=== PATIENT | male | born 1945 | race Caucasian/White ===

== ENCOUNTER → 2019-08-07 | Outpatient (CLI) | payer MEDICARE ==
[~2019-08-07] MED LIST: AMLO10TA4 PO; APIX2.5T PO; HYDR25TA4 PO; MTP25TSR PO; PANT20TA2 PO; SUCR1TAB23 PO
[2019-08-07 09:44] LABS: BASOPHILS % (AUTO) 0 % (0-10); EOSINOPHILS # (AUTO) 0.2 10^3/uL (0.0-0.3); EOSINOPHILS % (AUTO) 3 % (0-10); HEMATOCRIT 48 % (40-54); HEMOGLOBIN 16.5 G/DL (13.3-17.7); LYMPHOCYTES # (AUTO) 2.2 X 10^3 (1.0-4.0); LYMPHOCYTES % (AUTO) 30 % (12-44); MEAN CORPUSCULAR HEMOGLOBIN 29 PG (25-34); MEAN CORPUSCULAR HGB CONC 34 G/DL (32-36); MEAN CORPUSCULAR VOLUME 85 FL (80-99); MEAN PLATELET VOLUME 9.1 FL (7.4-10.4); MONOCYTES # (AUTO) 0.7 X 10^3 (0.0-1.0); MONOCYTES % (AUTO) 9 % (0-12); NEUTROPHILS # (AUTO) 4.3 X 10^3 (1.8-7.8); NEUTROPHILS % (AUTO) 58 % (42-75); PLATELET COUNT 275 10^3/uL (130-400); RED CELL DISTRIBUTION WIDTH 14.3 % (10.0-14.5); WHITE BLOOD COUNT 7.3 10^3/uL (4.3-11.0)
[2019-08-07 10:06] LABS: ALANINE AMINOTRANSFERASE 30 U/L (0-55); ALBUMIN 4.8 GM/DL (3.2-4.5); ALKALINE PHOSPHATASE 58 U/L (40-136); BILIRUBIN,TOTAL 0.7 MG/DL (0.1-1.0); BUN/CREATININE RATIO 15; CALCIUM 10.2 MG/DL (8.5-10.1); CARBON DIOXIDE 26 MMOL/L (21-32); CHLORIDE 104 MMOL/L (98-107); CHOLESTEROL 171 MG/DL (< 200); CREATININE SERUM 1.18 MG/DL (0.60-1.30); GFR ESTIMATED > 60; GLUCOSE 103 MG/DL (70-105); HDL CHOLESTEROL 67 MG/DL (40-60); POTASSIUM 4.1 MMOL/L (3.6-5.0); SODIUM 139 MMOL/L (135-145); TOTAL PROTEIN 8.1 GM/DL (6.4-8.2); TRIGLYCERIDES 128 MG/DL (<150); VLDL CHOLESTEROL 26 MG/DL (5-40)
== END ==
LOC: LAB 09:27
PROVIDERS: ATTEND Internal Medicine Cardiovascular Disease
DX: I34.0 Nonrheumatic mitral (valve) insufficiency (principal); I10 Essential (primary) hypertension; I48.91 Unspecified atrial fibrillation; I65.29 Occlusion and stenosis of unspecified carotid artery; E78.2 Mixed hyperlipidemia
CPT/HCPCS: 36415; 80053; 80061; 85025

== ENCOUNTER → 2021-07-02 | Outpatient (CLI) | payer MEDICARE ==
[2021-07-02 08:36] LABS: ABSOLUTE RETIC # 36 10e9/uL (24-90); BASOPHILS % (AUTO) 1 % (0-10); EOSINOPHILS # (AUTO) 0.2 10^3/uL (0.0-0.3); EOSINOPHILS % (AUTO) 3 % (0-10); HEMATOCRIT 48 % (40-54); HEMOGLOBIN 14.6 g/dL (13.3-17.7); LYMPHOCYTES # (AUTO) 1.4 10^3/uL (1.0-4.0); LYMPHOCYTES % (AUTO) 26 % (12-44); MEAN CORPUSCULAR HEMOGLOBIN 24 pg (25-34); MEAN CORPUSCULAR HGB CONC 31 g/dL (32-36); MEAN CORPUSCULAR VOLUME 77 fL (80-99); MEAN PLATELET VOLUME 9.1 fL (9.0-12.2); MONOCYTES # (AUTO) 0.5 10^3/uL (0.0-1.0); MONOCYTES % (AUTO) 9 % (0-12); NEUTROPHILS # (AUTO) 3.2 10^3/uL (1.8-7.8); NEUTROPHILS % (AUTO) 61 % (42-75); PLATELET COUNT 255 10^3/uL (130-400); RETICULOCYTE % 0.58 % (0.50-2.40); WHITE BLOOD COUNT 5.3 10^3/uL (4.3-11.0)
[2021-07-02 09:29] LABS: LYMPHOCYTES % (MANUAL) 35 %; NEUTROPHILS % (MANUAL) 53 %
[2021-07-02 09:30] LABS: ANISOCYTOSIS SLIGHT; ELLIPT/OVALOCYTES SLIGHT; EOSINOPHILS % (MANUAL) 5 %; HYPOCHROMASIA SLIGHT; MICROCYTOSIS SLIGHT; MONOCYTES % (MANUAL) 7 %; POIKILOCYTOSIS SLIGHT
== END ==
LOC: LAB
PROVIDERS: ATTEND Internal Medicine
DX: D50.9 Iron deficiency anemia, unspecified (principal)
CPT/HCPCS: 36415; 85007; 85027; 85045; 85055

== ENCOUNTER → 2021-07-21 | Outpatient (CLI) | payer MEDICARE ==
[~2021-07-21] VITALS: Ht 182 cm; Wt 82.0 kg
[~2021-07-21] MED LIST changes: +CATHETER FLUSH 10 ML SYR IV PRN
[2021-07-21 12:04] VITALS: BP 158/94
--- NOTE | 2021-07-22 07:54 | Cardiology Stress Test Report ---
Stress Test Report Date of Procedure/Referring: Date of Procedure: Jul 21, 2021 Kya Huang Admitting Physician Marky Tejeda MD Indications: A Fib Baseline Heart Rate: 61 Baseline Blood Pressure: Blood Pressure Systolic: 158 Blood Pressure Diastolic: 94 Vital Signs Date Time Temp Pulse Resp B/P (MAP) Pulse Ox O2 Delivery O2 Flow Rate FiO2 07/21/21 12:04 61 158/94 (115) 98 Baseline Vital Signs Vital Signs Date Time Temp Pulse Resp B/P (MAP) Pulse Ox O2 Delivery O2 Flow Rate FiO2 07/21/21 12:04 61 158/94 (115) 98 Baseline EKG: Baseline EKG: atrial fribrillation Summary: After explaining the procedure and details to the patient, he signed the consent and was brought to the stress nuclear laboratory. Patient exercised on standard Ehsan protocol, EKG, heart rate and blood pressure were monitored continuously, resting and stress doses of radio tracer were injected, imaging was acquired and reviewed in the short axis, horizontal long axis and vertical long axis views Patient was able to exercise for a total of 7 minutes on Ehsan protocol, METs 8.5 Maximum heart rate 138 Maximum blood pressure 170/115 Stress EKG, Minimal nondiagnostic changes Recovery EKG, Return to baseline TID: 1.03 SSS: 7 SDS: 2 EF: 69 Conclusion: 1. Fair exercise tolerance for a total of 7 minutes on standard Ehsan protocol, 8.5 METS achieving 94% of maximal expected heart rate 2. Baseline atrial fibrillation persisted during test 3. Hypertensive response to exercise with peak blood pressure 170/115 return to baseline during recovery 4. Nondiagnostic EKG changes with exercise return to baseline during recovery 5. Mild decrease uptake in the apex and anteroapical segment which is fixed no significant reversibility was noted, probably extracardiac attenuation 6. Normal left ventricular size and contractility, ejection fraction 69%, gated images are unreliable due to underlying atrial fibrillation JANET HUSTON MD Jul 22, 2021 07:54
== END ==
LOC: CARD 11:00
PROVIDERS: ATTEND Physician Assistant
DX: I08.3 Combined rheumatic disorders of mitral, aortic and tricuspid valves (principal); I11.9 Hypertensive heart disease without heart failure; I48.0 Paroxysmal atrial fibrillation; I25.10 Atherosclerotic heart disease of native coronary artery without angina pectoris
CPT/HCPCS: 78452; 93017; 93306; A9502

== ENCOUNTER → 2021-07-25 | Outpatient (CLI) | payer MEDICARE ==
[~2021-07-25] MED LIST changes: -CATHETER FLUSH 10 ML SYR IV PRN
[2021-07-25 15:59] LABS: BASOPHILS % (AUTO) 0 % (0-10); EOSINOPHILS # (AUTO) 0.1 10^3/uL (0.0-0.3); EOSINOPHILS % (AUTO) 2 % (0-10); HEMATOCRIT 45 % (40-54); HEMOGLOBIN 14.8 g/dL (13.3-17.7); LYMPHOCYTES # (AUTO) 1.9 X 10^3 (1.0-4.0); LYMPHOCYTES % (AUTO) 28 % (12-44); MEAN CORPUSCULAR HEMOGLOBIN 25 pg (25-34); MEAN CORPUSCULAR HGB CONC 33 g/dL (32-36); MEAN CORPUSCULAR VOLUME 77 fL (80-99); MEAN PLATELET VOLUME 8.9 fL (9.0-12.2); MONOCYTES # (AUTO) 0.9 X 10^3 (0.0-1.0); MONOCYTES % (AUTO) 14 % (0-12); NEUTROPHILS # (AUTO) 3.6 X 10^3 (1.8-7.8); NEUTROPHILS % (AUTO) 55 % (42-75); PLATELET COUNT 248 10^3/uL (130-400); WHITE BLOOD COUNT 6.6 10^3/uL (4.3-11.0)
--- NOTE | 2021-07-25 16:12 | Diagnostic Imaging Report ---
PROCEDURE: CT head and CT cervical spine without contrast. TECHNIQUE: Multiple contiguous axial images were obtained through the brain and cervical spine without the use of intravenous contrast. Sagittal and coronal reformations through the cervical spine were then performed. Auto Exposure Controls were utilized during the CT exam to meet ALARA standards for radiation dose reduction. INDICATION: Head injury, pain, fall. COMPARISON: None available. FINDINGS: Mild atrophy. No intracranial hemorrhage. No intracranial mass, mass effect, midline shift, herniation, hydrocephalus or extra-axial fluid collection. No CT evidence of an acute ischemic infarction. The orbits are unremarkable. Opacification of the left-sided frontal sinuses with mucoperiosteal thickening. Opacification of the anterior left ethmoid air cells. Post surgical changes of bilateral antral windows. Mucoperiosteal thickening of the bilateral maxillary sinus hayes and sphenoid sinuses is noted. No air-fluid level within the maxillary sinuses or sphenoid sinuses. 1.2 cm polypoid density is noted within the left nasal cavity. No temporomandibular joint dislocation. The calvarium is intact. Alignment of the cervical spine is well maintained. Alignment of the atlantooccipital joint is well maintained. Scattered endplate degenerative changes, particularly associated with C4-C6. Otherwise, vertebral body heights are well maintained. Moderate to severe disc space height loss at C4/C5 and C5/C6. Chronic appearing fracturing of the bilateral spinous processes of C2. No acute fracture or dislocation. No destructive osseous process. Scattered facet joint degenerative changes and uncovertebral joint hypertrophy. No severe central canal stenosis is present with low-grade multilevel central canal stenosis present, particularly at C4/C5. Mild scattered vascular calcifications. The paraspinal soft tissues are unremarkable. IMPRESSION: 1. No acute intracranial abnormality. 2. No acute osseous abnormality within the cervical spine with multilevel degenerative changes present. 3. Evidence of sequelae of chronic sinusitis involving the maxillary sinuses and sphenoid sinuses with associated postsurgical changes present. 4. Polyp versus mucosal thickening versus mucous retention cyst within the left nasal cavity extending into the left ethmoid air cells. Dictated by: Dictated on workstation # [id number]
[2021-07-25 16:18] LABS: BILIRUBIN,TOTAL 0.4 MG/DL (0.1-1.0); CALCIUM 10.6 MG/DL (8.5-10.1); CREATININE SERUM 1.12 MG/DL (0.60-1.30); POTASSIUM 3.6 MMOL/L (3.6-5.0); TOTAL PROTEIN 7.2 GM/DL (6.4-8.2)
== END ==
LOC: LAB 15:32
PROVIDERS: ATTEND Physician Assistant
DX: S09.8XXA Other specified injuries of head, initial encounter (principal); S00.81XA Abrasion of other part of head, initial encounter; I10 Essential (primary) hypertension; I48.91 Unspecified atrial fibrillation; R55 Syncope and collapse; R19.7 Diarrhea, unspecified; Z79.01 Long term (current) use of anticoagulants
CPT/HCPCS: 36415; 70450; 72125; 80053; 85025

== ENCOUNTER 2022-01-21 05:30 | Outpatient (RCR) | payer MEDICARE ==
[~2022-01-21] VITALS: Ht 182.9 cm; Wt 93.8 kg
[~2022-01-21 05:30] MED LIST changes: +AMLO-251 PO; +APIX5TAB PO; +FERR325T24 PO; +MULT-593 PO; +ROSU10TA28 PO
[2022-01-22] MEDS ORDERED: PANT40TA52 PO (11:07)
== END 2022-01-21 11:25 | disposition home or self-care (01) ==
LOC: PREOP 05:30
PROVIDERS: ATTEND Surgery
DX: Z01.812 Encounter for preprocedural laboratory examination (principal); Z20.822 Contact with and (suspected) exposure to COVID-19
CPT/HCPCS: 87636

== ENCOUNTER 2022-01-22 08:49 | Day surgery (SDC) | payer MEDICARE ==
[2022-01-22] VITALS (7 sets, daily range): BP systolic 98–154; BP diastolic 60–88
[~2022-01-22] VITALS: Ht 182.9 cm; Wt 93.8 kg
[2022-01-22] MEDS ORDERED: LACTATED RINGERS 1,000 ML IV STA (08:52)
[2022-01-22] MEDS ORDERED: LIDOCAINE 2% 20 ML (XYLOCAINE) VIAL ONE (08:59)
[2022-01-22] MEDS ORDERED: PROPOFOL INJECTION 50 ML IV ONE (08:59)
[2022-01-22] MEDS ORDERED: LACTATED RINGERS 1,000 ML IV ONE (08:59)
[2022-01-22] MEDS ORDERED: LIDOCAINE JELLY 2% 6 ML SYRINGE MM PRN (09:00)
[2022-01-22] MEDS ORDERED: HURRICAINE EXT TUBE (BENZOCAINE) XX PRN (09:00)
--- NOTE | 2022-01-22 10:28 | Progress Note-Pre Operative ---
Pre-Operative Progress Note H&P Reviewed The H&P was reviewed, patient examined and no changes noted. Date Seen by Provider: Jan 22, 2022 Time Seen by Provider: 10:00 Date H&P Reviewed: Jan 22, 2022 Time H&P Reviewed: 10:00 Pre-Operative Diagnosis: GERD, hx barretts LAINA HORN MD Jan 22, 2022 10:28
--- NOTE | 2022-01-22 10:29 | Discharge Inst-Surgical ---
D/C Lap Instructions-KORY Follow Up Activity as tolerated High Fiber Diet 25g or more per day Avoid Alcohol, Caffeine, Spicy [place] and Acid foods. Drink 64 fluid oz or more of fluids per day. Symptoms to Report: Fever over 101 degree F, Nausea/Vomiting If any problems/questions: Contact your physician or go to Emergency Room LAINA HORN MD Jan 22, 2022 10:28
[2022-01-22] MEDS ORDERED: ONDANSETRON 4 MG (ZOFRAN) ORAL DISSOLVE TAB PO PRN (10:30)
[2022-01-22] MEDS ORDERED: ONDANSETRON 4 MG/2 ML (SDV) Z0FRAN IVP PRN (10:30)
[2022-01-22] MEDS ORDERED: PANT40TA52 PO (11:07)
--- NOTE | 2022-01-22 11:52 | Progress Note-Post Operative ---
Post-Operative Progess Note Surgeon (s)/Asbestos Siding Installer (s) Surgeon LAINA HORN MD Asbestos Siding Installer: none Pre-Operative Diagnosis GERD, hx barretts Post-Operative Diagnosis reflux esophagitis(grade 3), moderate HH(2.5cm), moderate gastritis. Procedure & Operative Findings Date of Procedure 01/22/22 Procedure Performed/Findings EGD with bx. Anesthesia Type mac Estimated Blood Loss Estimated blood loss (mL): minimal Specimens/Packing Specimens Removed ge jxn, antrum LAINA HORN MD Jan 22, 2022 11:52
--- NOTE | 2022-01-22 12:28 | Anesthesia-General Post-Op ---
MAC Patient Condition Mental Status/LOC: Same as Preop Cardiovascular: Satisfactory Nausea/Vomiting: Absent Respiratory: Satisfactory Pain: Controlled Complications: Absent Post Op Complications Complications None Follow Up Care/Instructions Patient Instructions None needed. Anesthesiology Discharge Order Discharge Order Patient is doing well, no complaints, stable vital signs, no apparent adverse anesthesia problems. No complications reported per nursing. KEE CHEN CRNA Jan 22, 2022 12:28
--- NOTE | 2022-01-22 14:11 | OPERATIVE REPORT ---
DATE OF SERVICE: 01/22/2022 ATTENDING PRIMARY CARE PHYSICIAN: Dr. Marky Tejeda. PREOPERATIVE DIAGNOSES: History of Westfall's esophagus and gastroesophageal reflux disease. POSTOPERATIVE DIAGNOSES: Clinical Westfall's, reflux esophagitis, [place] grade C, moderate size hiatal hernia approximately 2.5 cm in size, and moderate gastritis. PROCEDURES PERFORMED: EGD with biopsy. SURGEON: Laina Horn MD. ANESTHESIA: Monitored anesthesia care. ESTIMATED BLOOD LOSS: Minimal. FINDINGS: Clinical Westfall's, reflux esophagitis, [place] grade C, moderate size hiatal hernia approximately 2.5 cm in size, and moderate gastritis. DISPOSITION: The patient tolerated the procedure well. INDICATIONS FOR PROCEDURE: The patient is a 77-year-old male known to us. He was seen in 2015 for an EGD and colonoscopy and was found to have a significant reflux esophagitis grade C and in that report, there was also a large hiatal hernia approximately 5 cm in size; however, there did not appear to be such a large hiatal hernia on this EGD. He did have clinical Westfall's esophagus identified. He states that he is otherwise eating well and does have some reflux; however, no regurgitation, no hematemesis and no coffee ground emesis. DESCRIPTION OF PROCEDURE: The patient was brought to the endoscopy suite and laid in the left lateral decubitus position. After adequate IV pain and sedative medications and monitored anesthesia care, the mouthpiece was applied. The endoscope was placed in the mouth, visualizing the pharynx and hypopharyngeal region. Vocal cords, epiglottis, and vallecula identified and appeared to be normal. The endoscope was then gently intubated and the esophageal opening and esophagus insufflated. The endoscope was then advanced to the first, second and third portion of the esophagus. At the level of GE junction, a reflux esophagitis, [place] grade C identified as well as a clinical Westfall's esophagus identified with upward migration of the GE junction. Biopsies were taken of this region with forceps with visualization of good hemostasis. The endoscope was then advanced in the stomach and the endoscope retroflexed, visualizing a moderate size hiatal hernia approximately 2.5 cm in size. There was a moderate severity gastritis. No formal ulcerations, polyps or any neoplasms. A biopsy was taken of the antrum to rule out H. pylori with visualization of good hemostasis. The endoscope was then advanced to the pylorus and first and second portion of the duodenum, which appeared normal with no distal obstructions. The endoscope was then slowly withdrawn while taking a second look and suctioning of residual air with no additional findings. The patient tolerated the procedure well. We will recommend the necessary lifestyle and dietary accommodation including small and more frequent meals, avoidance of eating at night as well as head elevation while lying supine. He also needs to avoid caffeinated beverages, spicy, greasy, and acidic foods. We will also recommend continuation of a PPI acid two way radio installer and start him back on Protonix 40 mg daily. We will recommend a followup EGD in three years. Job ID: [id number] DocumentID: [id number] Dictated Date: 01/22/2022 10:56:43 Knife Edger Date: 01/22/2022 14:09:58 Dictated By: LAINA HORN MD
== END 2022-01-22 11:30 | disposition home or self-care (01) ==
LOC: ENDO 08:49
PROVIDERS: ATTEND Surgery
DX: K22.70 Barrett's esophagus without dysplasia (principal); K21.00 Gastro-esophageal reflux disease with esophagitis, without bleeding; K44.9 Diaphragmatic hernia without obstruction or gangrene; K29.70 Gastritis, unspecified, without bleeding; K31.A15 Gastric intestinal metaplasia without dysplasia, involving multiple sites; I48.91 Unspecified atrial fibrillation; Z79.01 Long term (current) use of anticoagulants

== ENCOUNTER → 2022-06-28 | Outpatient (CLI) | payer MEDICARE ==
[~2022-06-28] MED LIST changes: +PANT40TA52 PO
== END ==
LOC: CARD 13:07
PROVIDERS: ATTEND Internal Medicine Cardiovascular Disease
DX: I08.3 Combined rheumatic disorders of mitral, aortic and tricuspid valves (principal); I11.9 Hypertensive heart disease without heart failure
CPT/HCPCS: 93306

== ENCOUNTER → 2022-07-12 | Outpatient (CLI) | payer MEDICARE ==
[~2022-07-12] VITALS: Ht 182 cm; Wt 94.0 kg
[~2022-07-12] MED LIST changes: +CATHETER FLUSH 10 ML SYR IVP PRN
[2022-07-12 08:45] VITALS: BP 136/64
--- NOTE | 2022-07-12 12:04 | Cardiology Stress Test Report ---
Stress Test Report Date of Procedure/Referring: Date of Procedure: Jul 12, 2022 PCP Yousif Gould MD Admitting Physician Admitting Physician: Attending Physician: Refugio Melo MD Indications: HTN Baseline Heart Rate: 54 Baseline Blood Pressure: Blood Pressure Systolic: 136 Blood Pressure Diastolic: 64 Vital Signs Date Time Temp Pulse Resp B/P (MAP) Pulse Ox O2 Delivery O2 Flow Rate FiO2 07/12/22 08:45 54 136/64 (88) Baseline Vital Signs Vital Signs Date Time Temp Pulse Resp B/P (MAP) Pulse Ox O2 Delivery O2 Flow Rate FiO2 07/12/22 08:45 54 136/64 (88) Baseline EKG: Baseline EKG: A Fib Summary: After explaining the procedure and details to the patient, he signed the con sent and was brought to the stress nuclear laboratory. Patient exercised on standard Ehsan protocol, EKG, heart rate and blood pressure were monitored continuously, resting and stress doses of radio tracer were injected, imaging was acquired and reviewed in the short axis, horizontal long axis and vertical long axis views Patient was able to exercise for a total of 9 minutes on Ehsan protocol, METs 10.5 Maximum heart rate 120 Maximum blood pressure 165/89 Stress EKG, Minimal nondiagnostic changes Recovery EKG, Return to baseline TID: 0.94 SSS: 10 SDS: 5 EF: 67 Conclusion: 1. Good exercise tolerance for a total of 9 minutes on standard Ehsan protocol 10.5 METS achieving 82% of maximal expected heart rate 2. Appropriate heart rate and blood pressure response to exercise return to baseline during recovery 3. Baseline atrial fibrillation persisted during test with nondiagnostic EKG changes with exercise return to baseline during recovery 4. Reversible ischemia involving the anterior apical segment, apex and inferior apical segment. 5. Normal left ventricular size, ejection fraction 67%, underlying rhythm atrial fibrillation. Copy Copies To 1: YOUSIF GOULD MD, BASHAR J MD Jul 12, 2022 12:04
== END ==
LOC: CARD 07:16
PROVIDERS: ATTEND Internal Medicine Cardiovascular Disease
DX: I10 Essential (primary) hypertension (principal); I25.10 Atherosclerotic heart disease of native coronary artery without angina pectoris
CPT/HCPCS: 78452; 93017; A9502